=== PATIENT | male | born 1970 | race Caucasian/White ===

== ENCOUNTER 2017-08-26 21:45 | Emergency (ER) | payer BC ==
[2017-08-26] MEDS: Lidocaine 2% with EPINEPHrine 1:200,000 20 ML SDV ONE (22:05)
--- NOTE | 2017-08-26 22:14 | EDM.PDOC ---
ED HPI GENERAL MEDICAL PROBLEM - General Chief Complaint: Lower Extremity Injury/Pain Stated Complaint: leg bleeding Time Seen by Provider: 08/26/17 22:00 Source of Information: Reports: Patient History Limitations: Reports: No Limitations - History of Present Illness INITIAL COMMENTS - FREE TEXT/NARRATIVE: 47 YO WM presents to ER complaining of a bleeding varicose vein to his right lower extremity which began tonight. Pt reports history of vein striping in the remote past. Pt reports bleeding was controlled with pressure but he was concerned it would continue to bleeding prompting decision for ER visit. Pt denies taking ASA or blood thinners. Pt denies ETOH use/abuse. Pt denies any other complaints at this time. Onset: Sudden Onset Date: 08/26/17 Onset Time: 21:00 Duration: Resolved Prior to Arrival Location: Reports: Lower Extremity, Right Severity: Mild Improves with: Reports: None Worsens with: Reports: None Associated Symptoms: Reports: No Other Symptoms Review of Systems - Review of Systems Review Of Systems: See Below Constitutional: Reports: No Symptoms Eyes: Reports: No Symptoms Ears: Reports: No Symptoms Nose: Reports: No Symptoms Mouth/Throat: Reports: No Symptoms Respiratory: Reports: No Symptoms Cardiovascular: Reports: No Symptoms GI/Abdominal: Reports: No Symptoms Genitourinary: Reports: No Symptoms Musculoskeletal: Reports: No Symptoms Skin: Reports: Wound (right anterior tibia varicose vein bleeding) Neurological: Reports: No Symptoms Psychiatric: Reports: No Symptoms ED EXAM, GENERAL - Physical Exam Exam: See Below Exam Limited By: No Limitations General Appearance: Alert, WD/WN, No Apparent Distress Respiratory/Chest: No Respiratory Distress, Lungs Clear, Normal Breath Sounds, No Accessory Muscle Use, Chest Non-Tender Cardiovascular: Normal Peripheral Pulses, Regular Rate, Rhythm, No Edema, No Gallop, No JVD, No Murmur, No Rub GI/Abdominal: Normal Bowel Sounds, Soft, Non-Tender, No Organomegaly, No Distention, No Abnormal Bruit, No Mass Extremities: Normal Inspection, Normal Range of Motion, Non-Tender, Normal Capillary Refill, No Pedal Edema Neurological: Alert, Oriented, CN II-XII Intact, Normal Cognition, Normal Gait, Normal Reflexes, No Motor/Sensory Deficits Psychiatric: Normal Affect, Normal Mood Skin Exam: Wound/Incision (right anterior tibia varicose vein bleeding) Lymphatic: No Adenopathy ED TRAUMA EXTREMITY PROCEDURES - Laceration/Wound Repair Right Leg Lac/Wound Length In cm: 1 Appearance: Superficial Distal NVT: Neuro & Vascular Intact Local Anesthesia - Lidocaine (Xylocaine): 1% with EPI Local Anesthetic Volume: 5cc Skin Prep: Providone-Iodine (Betadine), Saline Closed With: Sutures Suture Size: 4-0 # of Sutures: 1 Sterile Dressing Applied: Provider Tetanus Status Addressed: Yes Complications: No Departure - Departure Time of Disposition: 22:18 Disposition: Home, Self-Care 01 Condition: Good Clinical Impression: Varicose ulcer (lower extremity) Qualifiers: Laterality: right Qualified Code(s): I83.019 - Varicose veins of right lower extremity with ulcer of unspecified site; L97.919 - Non-pressure chronic ulcer of unspecified part of right lower leg with unspecified severity - Discharge Information Instructions: Varicose Veins Additional Instructions: 1. discharge home 2. remove suture next 5-10 days 3. follow up with PCP for further evaluation and treatment 4. return to ER for worsening symptoms - Assessment/Plan Assessment:: right anterior tibia varicose vein bleeding- resolved Plan: 1. discharge home 2. remove suture next 5-10 days 3. follow up with PCP for further evaluation and treatment 4. return to ER for worsening symptoms
== END 2017-08-26 22:15 | disposition home or self-care (01) ==
LOC: MERGE 21:45 → KA.ED 21:45
DX: I83.018 Varicose veins of right lower extremity with ulcer other part of lower leg (principal); L97.919 Non-pressure chronic ulcer of unspecified part of right lower leg with unspecified severity
CPT/HCPCS: 12001; 99283